=== PATIENT | male | born 1995 | race Caucasian/White ===

== ENCOUNTER 2020-04-03 15:16 | Emergency (ER) | payer SELFPAY ==
[2020-04-03 15:18] VITALS: BP 127/78; PULSE 99; RESP 16; TEMP 37.3; O2SAT 100
--- NOTE | 2020-04-03 15:49 | ED.GENADULT ---
HPI - General Adult General Chief complaint: Unspecified Stated complaint: Multiple complaints Time Seen by Provider: 04/03/20 15:42 Source: patient Mode of arrival: ambulatory Limitations: no limitations History of Present Illness HPI narrative: 24 years old white male presents with scattered itching rash all over his body started 4 days ago. Patient also complaining of some trouble swallowing sometimes. Patient denies similar symptoms. Patient denies any fever, chills, nausea, vomiting. Patient denies exposure to anything new in his life lately. Related Data Allergies Allergy/AdvReac Type Severity Reaction Status Date / Time No Known Allergies Allergy Verified 04/03/20 15:21 Review of Systems Review of Systems: Narrative: CONSTITUTIONAL: Denies fever, chills, or sweats. EYES: Denies visual changes, redness, or discharge. ENT: Denies rhinorrhea, congestion, sore throat, or otalgia. CARDIOVASCULAR: Denies chest pain, palpitations, or edema. RESPIRATORY: Denies cough or dyspnea. GASTROINTESTINAL: Denies abdominal pain, nausea, vomiting, or diarrhea. GENITOURINARY: Denies dysuria or hematuria. SKIN: Denies rash or itching. MUSCULOSKELETAL: Denies back pain, joint pain, or myalgia. NEUROLOGIC: Denies headache, numbness, or weakness. PSYCHIATRIC: Denies anxiety or depression. PMFSH Social History Social History Gender identity (if verbalized by the patient): Male Exam Narrative: Exam Narrative: General appearance: Well-developed, well-nourished Skin: Normal color, scattered hives all over Head: Normocephalic, nontraumatic Eyes: Clear conjunctiva ENT: Oropharynx normal, ears normal, nose normal Neck: Supple, nontender Chest and respiratory: Airway patent, no respiratory distress, no accessory muscle use Heart: Regular rate/rhythm Abdomen: Soft, nontender, no organomegaly, quiet bowel sounds Vascular: Normal peripheral pulses, normal capillary refill. Musculoskeletal: Normal range of motion, nontender back Neurologic: Alert and oriented ?3, [employer] is normal as tested, no gross motor deficit Course Course Emergency Course: Improving Vital Signs Vital signs: Vital Signs Temperature 37.3 C 04/03/20 15:18 Pulse Rate 99 04/03/20 15:18 Respiratory Rate 16 04/03/20 15:18 Blood Pressure 127/78 04/03/20 15:18 Pulse Oximetry 100 04/03/20 15:18 Temperature 37.3 C 04/03/20 15:18 Pulse Rate 99 04/03/20 15:18 Respiratory Rate 16 04/03/20 15:18 Blood Pressure 127/78 04/03/20 15:18 Pulse Oximetry 100 04/03/20 15:18 Medical Decision Making MDM Narrative Medical decision making narrative: Acute dermatitis of unknown etiology Patient reports some trouble swallowing. Denies any trouble breathing. Epinephrine, prednisone and Benadryl ordered. Vital Signs Vital Signs: Vital Signs Temperature 37.3 C 04/03/20 15:18 Pulse Rate 99 04/03/20 15:18 Respiratory Rate 16 04/03/20 15:18 Blood Pressure 127/78 04/03/20 15:18 Pulse Oximetry 100 04/03/20 15:18 Temperature 37.3 C 04/03/20 15:18 Pulse Rate 99 04/03/20 15:18 Respiratory Rate 16 04/03/20 15:18 Blood Pressure 127/78 04/03/20 15:18 Pulse Oximetry 100 04/03/20 15:18 Critical Care Time Critical Care Time Critical Care Time: No Discharge Plan Discharge Clinical Impression: Acute dermatitis Patient Disposition: Home, Self-Care Condition: Improved Instructions: Urticaria (ED) Additional Instructions: Return if symptoms are worsening , call your family physician for appointment, take Tylenol as as needed for aches and pain, continue home medications. Prescriptions: New prednisone 50 mg tablet 50 mg
[2020-04-03] MEDS: predniSONE 20 MG TABLET 60 MG PO (16:03)
[2020-04-03] MEDS: EPINEPHrine HCL INJ 1 MG/ML AMPUL 0.3 MG IM (16:03)
[2020-04-03 16:20] VITALS: BP 119/71; PULSE 81; PULSE 82; RESP 33; O2SAT 100
--- NOTE | 2020-04-03 16:23 | PC.NURSE ---
PER CRISTINA HUANG, WAIT TO D/C PT FOR 5-10 MINUTES TO SEE HOW EPINEPHRINE HELPS. VERBAL ORDER FROM CRISTINA HUANG TO HOLD BENADRYL DUE TO PT MOTHER HAVING ALLERGY TO IT, AND THE FACT THAT PT RASH STARTED AFTER HE TOOK SOME TO HELP HIM SLEEP.
[2020-04-03 16:41] VITALS: BP 125/77; PULSE 82; RESP 35; O2SAT 100
[2020-04-03 17:44] VITALS: BP 121/75; PULSE 94; RESP 17; O2SAT 98
== END 2020-04-03 17:45 | disposition home or self-care (01) ==
PROVIDERS: Emergency Provider Emergency Medicine
DX: L30.9 Dermatitis, unspecified (principal)
CPT/HCPCS: 96372; 99283; A9270; J0171; J7512